=== PATIENT | male | born 2000 | race Caucasian/White ===

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

== ENCOUNTER → 2023-08-09 16:53 | Outpatient (CLI) | payer BC, SELFPAY ==
[2023-08-09 19:40] LABS: Hepatitis B Surface Antigen NEGATIVE s/c (NEGATIVE)
[2023-08-09 19:54] LABS: HIV 1 & 2 Ab/Ag 4th Gen Combo NEGATIVE (NEGATIVE); Hep C Virus Ab w/Reflex Quant NEGATIVE s/c (NEGATIVE)
[2023-08-10 18:36] LABS: Urine Chlamydia NOT DETECTED; Urine N gonorrhoeae NOT DETECTED
[2023-08-13 07:22] LABS: RPR Screen Non Reactive (Non Reactive)
[2023-08-13 07:37] LABS: Hepatitis B Surf Ab Qualitativ Non Reactive (.)
== END ==
PROVIDERS: Family Provider Family Medicine; PCP Pediatrics; Referring Provider Family Medicine; Visit Provider Family Medicine
DX: Z11.3 Encounter for screening for infections with a predominantly sexual mode of transmission (principal)
CPT/HCPCS: 36415; 86592; 86706; 86803; 87340; 87389; 87491; 87591

== ENCOUNTER → 2023-09-16 08:49 | Outpatient (CLI) | payer BC, SELFPAY ==
[2023-09-16 09:37] LABS: Hematocrit 40.6 % (41-53); Hemoglobin 12.8 g/dL (13.5-17.5); Mean Corpuscular HGB Conc 31.6 % (30-36); Mean Corpuscular Hemoglobin 22.3 PG (26-34); Mean Corpuscular Volume 70.6 fL (80-100); Platelet Count 344 X10^3/uL (150-400); Red Blood Cell Count 5.75 X10^6/uL (4.5-5.9); Red Cell Distribution Width 13.9 % (11.6-14.8); White Blood Cell Count 6.2 X10^3/uL (4.5-11.0)
[2023-09-16 15:34] LABS: Microcytosis 1+; Neutrophils Absolute Manual 3782 /uL (3000-5900); Tear Drop Cells 1+; Total Cells Counted 100
== END ==
PROVIDERS: Family Provider Family Medicine; PCP Family Medicine; Referring Provider Family Medicine; Visit Provider Family Medicine
DX: D56.0 Alpha thalassemia (principal)
CPT/HCPCS: 36415; 85025

== ENCOUNTER → 2024-09-21 08:32 | Outpatient (CLI) | payer BC, SELFPAY ==
[2024-09-21 09:32] LABS: Add Manual Diff / Slide Review NO; Hematocrit 46.7 % (41-53); Hemoglobin 14.8 g/dL (13.5-17.5); Lymphocytes Absolute Auto 2000 /uL (1100-4500); Mean Corpuscular HGB Conc 31.6 % (30-36); Mean Corpuscular Hemoglobin 22.4 PG (26-34); Mean Corpuscular Volume 70.8 fL (80-100); Platelet Count 376 X10^3/uL (150-400)
[2024-09-21 10:46] LABS: Anisocytosis 1+; Microcytosis 1+
== END ==
PROVIDERS: PCP Family Medicine; Referring Provider Family Medicine; Visit Provider Family Medicine
DX: Z00.00 Encounter for general adult medical examination without abnormal findings (principal); D56.0 Alpha thalassemia
CPT/HCPCS: 36415; 85025

== ENCOUNTER → 2025-01-31 10:40 | Outpatient (CLI) | payer BC, SELFPAY ==
--- NOTE | 2025-01-31 10:43 | DI.MRI.S_ITS ---
PROCEDURE: MR BRAIN (IAC) WWO CON INDICATIONS: Hearing loss L side TECHNIQUE: Noncontrast sagittal T1 spin echo, axial FLAIR, axial gradient echo, axial diffusion and ADC through the brain. Axial thin-slice 3D CISS, coronal TruFISP, axial T1 spin echo with fat saturation through the internal auditory canals. After the administration of contrast, thin slice axial and coronal T1 spin echo with fat saturation through the internal auditory canals, and axial and coronal and sagittal T1 spin echo with fat saturation through the brain. COMPARISON: None. FINDINGS: Image quality: Excellent. Cerebellopontine angles: No cerebellopontine angle masses. Inner ear structures appear normally formed. No suspicious enhancement in the internal auditory canal or along the course of the 7th cranial nerve. CSF spaces: Ventricles are normal in size and shape. No extra-axial fluid collections. Basal cisterns are patent. Brain: No intracranial bleeds or mass effects. Lin-white matter interface is intact. No abnormal intracranial enhancement. Diffusion weighted images demonstrate no acute ischemic insults. Brainstem appears normal. Normal intravascular flow voids are present. Skull and face: Calvarial marrow signal is normal. Orbits appear normal. Sinuses: Sinuses and mastoids are clear. IMPRESSION: No cause for patient's symptoms is identified. Normal appearance of the internal auditory canals and cerebellopontine angles. No acute intracranial abnormalities or abnormal intracranial enhancement. Approved by: Juan Oseguera M.D. on 01/31/2025 at 14:01
== END ==
LOC: MRI 10:42
PROVIDERS: PCP Family Medicine; Referring Provider Physician Assistant; Visit Provider Physician Assistant
DX: H91.92 Unspecified hearing loss, left ear (principal)
CPT/HCPCS: 70553; A9579